=== PATIENT | female | born 1990 | race Caucasian/White ===

== ENCOUNTER 2018-04-29 16:06 | Outpatient (CLI) | payer OTHER | END 2018-04-29 18:15 | disposition home or self-care (01) | LOC: OBT 16:06 → L-D 16:07 → OBT 18:15 | DX: O36.8190 Decreased fetal movements, unspecified trimester, not applicable or unspecified (principal); Z3A.00 Weeks of gestation of pregnancy not specified | CPT/HCPCS: 76818 ==